=== PATIENT | male | born 1970 | race Caucasian/White ===

== ENCOUNTER 2016-07-03 17:20 | Inpatient (IN) | payer OTHER ==
[2016-07-03 17:28] VITALS: RESP 16
[2016-07-03] MEDS ORDERED: fentaNYL 100 MCG/2 ML INJ IVP ONE (19:56)
[2016-07-03] MEDS ORDERED: ONDANSETRON 4 MG/2 ML VIAL IVP ONE (19:56)
[2016-07-03] MEDS ORDERED: NS 1,000 ML IV ONE ×2 (19:57→21:46)
[2016-07-03 20:07] LABS: ANION GAP 11 mEq/L (8-16); CALCIUM 8.3 mg/dL (8.5-10.4); CARBON DIOXIDE 27 mEq/l (22-31); CHLORIDE 102 mEq/L (97-110); CREATININE 0.7 mg/dL (0.7-1.3); GLOMERULAR FILTRATION RATE > 60; GLUCOSE 70 mg/dL (70-100); POTASSIUM 3.3 mEq/L (3.5-5.2); SODIUM 140 mEq/L (134-144)
--- NOTE | 2016-07-03 20:08 | EDPHY ---
H & P Stated Complaint: suprapubic pain x 3 weeks--pt concerned for "uti and diverticulitus" HPI/ROS: CHIEF COMPLAINT: Abdominal pain, flank pain HISTORY OF PRESENT ILLNESS: 2 weeks of generalized abdominal pain he feels is related to diverticulitis. Two days of right-sided flank pain. The abdominal pain is minimal at this time. Was moderate to severe 1st and has improved. Some constipation diarrhea. No fevers or chills. Some dysuria. No urethral discharge. No history of renal stones. Nausea but no vomiting. He has had several bouts of diverticulitis in the past without surgical intervention. No other associated complaints or modifying factors. REVIEW OF SYSTEMS: Ten systems reviewed and are negative unless otherwise noted in the HPI EXAMINATION: General Appearance: Alert, no distress Head: normocephalic, atraumatic Eyes: Pupils equal and round, no conjunctival pallor or injection ENT, Mouth: Mucous membranes moist . No lesions. Airway patent. Neck: Normal inspection, supple, non-tender Respiratory: Lungs are clear to auscultation . No wheezing rhonchi or crackles Cardiovascular: Regular rate and rhythm. Pulses intact distally Gastrointestinal: obese abdomen. Abdomen is soft and nontender In all quadrants. Mild CVA tenderness.. No tympany. No rigidity. Non-acute abdomen. Neurological: A&O, nonfocal, Strength is 5/5 in all limbs. Skin: Warm and dry, no rash Extremities: Nontender, no pedal edema Psychiatric: Mood and affect normal DIFFERENTIAL DIAGNOSES: Including but not limited to Renal colic, renal stone, ureteral stone, cystitis, diverticulitis, colitis, enteritis MDM: 8:08 p.m. abdominal and flank pain patient with diverticulitis in the past. He has had no perforations, abscesses or colectomies. His abdominal pain is minimal at this time as he is more concerned about the right flank pain. he remains hemodynamically stable in no acute distress. 9:00 p.m. notified by Radiology that there is evidence of acute mid sigmoid diverticulitis is transmural. No perforation or abscess. There is also adjacent cystic transmural inflammatory response. No visualized stones or hydronephrosis. I have informed the patient of these findings. He is still in pain, but his abdomen remained soft without peritonitis. Did recommend admission to the hospital and he has agreed to be admitted. I discussed the case with Dr. Cooper at 9:15pm, and he will admit the patient. He prefers Levaquin and Flagyl at this time. Patient will be admitted to a medical- surgical bed in stable condition. SUPERVISION: This patient was independently evaluated without the aide of supervising physician.The case discussed with Dr. Odom. Source: Patient Exam Limitations: No limitations - Personal History Current Tetanus/Diphtheria Vaccine: Unsure Current Tetanus Diphtheria and Acellular Pertussis (TDAP): Unsure - Medical/Surgical History Hx Asthma: No Hx Chronic Respiratory Disease: No Hx Diabetes: Yes Hx Cardiac Disease: No Hx Renal Disease: No Hx Cirrhosis: No Hx Alcoholism: No Hx HIV/AIDS: No Hx Splenectomy or Spleen Trauma: No Other PMH: ins diabetic. divertic - Social History Smoking Status: Never smoked Constitutional: Initial Vital Signs Temperature (C) 99.3 F 07/03/16 17:25 Heart Rate 98 07/03/16 17:25 Respiratory Rate 16 07/03/16 17:25 Blood Pressure 132/58 H 07/03/16 17:25 O2 Sat (%) 94 07/03/16 17:25 O2 Delivery Mode Room Air Allergies/Adverse Reactions: oxycodone [Oxycodone] Allergy (Severe, Verified 05/07/13 19:55) Pain hydromorphone HCl [From Dilaudid] Allergy (Verified 05/04/13 17:24) Home Medications: Medication Instructions Recorded Insulin Glargine [Lantus 100 60 unit SQ HS 05/04/13 UNITS/ML (RX)] Insulin Lispro [Humalog] 10 - 12 unit SQ TIDMEAL 05/04/13 Lisinopril 5 mg PO DAILY 05/04/13 Medical Decision Making - Data Points Laboratory Results: Laboratory Results 07/03/16 19:30 07/03/16 19:30 07/03/16 07/03/16 19:30 19:20 WBC 19.93 H 10^3/uL (3.80-9.50) RBC 4.33 L 10^6/uL (4.40-6.38) Hgb 14.1 g/dL (13.7-17.5) Hct 39.7 L % (40.0-51.0) MCV 91.7 fL (81.5-99.8) MCH 32.6 pg (27.9-34.1) MCHC 35.5 g/dL (32.4-36.7) RDW 12.6 % (11.5-15.2) Plt Count 355 10^3/uL (150-400) MPV 9.2 fL (8.7-11.7) Neut % (Auto) 76.8 H % (39.3-74.2) Lymph % (Auto) 16.5 % (15.0-45.0) [place] % (Auto) 5.5 % (4.5-13.0) Eos % (Auto) 0.3 L % (0.6-7.6) Baso % (Auto) 0.3 % (0.3-1.7) Nucleat RBC Rel Count 0.0 % (0.0-0.2) Absolute Neuts (auto) 15.33 H 10^3/uL (1.70-6.50) Absolute Lymphs (auto) 3.28 H 10^3/uL (1.00-3.00) Absolute Monos (auto) 1.10 H 10^3/uL (0.30-0.80) Absolute Eos (auto) 0.05 10^3/uL (0.03-0.40) Absolute Basos (auto) 0.06 10^3/uL (0.02-0.10) Absolute Nucleated RBC 0.00 10^3/uL (0-0.01) Immature Gran % 0.6 % (0.0-1.1) Immature Gran # 0.11 H 10^3/uL (0.00-0.10) Sodium 140 mEq/L (134-144) Potassium 3.3 L mEq/L (3.5-5.2) Chloride 102 mEq/L (97-110) Carbon Dioxide 27 mEq/l (22-31) Anion Gap 11 mEq/L (8-16) BUN 7 mg/dL (7-23) Creatinine 0.7 mg/dL (0.7-1.3) Estimated GFR > 60 Glucose 70 mg/dL (70-100) Calcium 8.3 L mg/dL (8.5-10.4) Lipase 20.0 L IU/L (23-300) Urine Color YELLOW Urine Appearance MODERATELY TURBID Urine pH 6.0 (5.0-7.5) Ur Specific [place] 1.010 (1.002-1.030) Urine Protein 1+ H (NEGATIVE) Urine Ketones NEGATIVE (NEGATIVE) Urine Blood 2+ H (NEGATIVE) Urine Nitrate POSITIVE H (NEGATIVE) Urine Bilirubin NEGATIVE (NEGATIVE) Urine Urobilinogen 2.0 H EU (0.2-1.0) Ur Leukocyte Esterase 3+ H (NEGATIVE) Urine RBC 10-15 H /hpf (0-3) Urine WBC 50-182 H /hpf (0-3) Ur Epithelial Cells TRACE /lpf (NONE-1+) Urine Bacteria 3+ H /hpf (NONE SEEN) Urine Mucus TRACE /lpf (NONE-1+) Urine Glucose NEGATIVE (NEGATIVE) Medications Given: Discontinued Medications Fentanyl (Sublimaze) 75 mcg IVP EDNOW ONE Stop: 07/03/16 19:57 Last Admin: 07/03/16 20:03 Dose: 75 mcg Sodium Chloride (Ns) 1,000 mls @ 0 mls/hr IV ONCE ONE PRN Reason: Wide Open Stop: 07/03/16 19:58 Last Admin: 07/03/16 20:00 Dose: 1,000 mls Ondansetron HCl (Zofran) 4 mg IVP EDNOW ONE Stop: 07/03/16 19:57 Last Admin: 07/03/16 20:04 Dose: 4 mg Departure - Departure Disposition: [facility] Inpatient Acute Clinical Impression: Renal colic on right side, Acute diverticulitis of intestine, Cystitis Abdominal pain Qualifiers: Abdominal location: generalized Qualifier Code: (R10.84) Generalized abdominal pain Urinary tract infection Qualifiers: Urinary tract infection type: acute cystitis Hematuria presence: without hematuria Qualifier Code: (N30.00) Acute cystitis without hematuria Condition: Good Referrals: Mackenzie Wade PA [Primary Care Provider] - As per Instructions
[2016-07-03 20:11] LABS: % IMMATURE GRANULYOCYTES 0.6 % (0.0-1.1); ABSOLUTE IMMATURE GRANULOCYTES 0.11 10^3/uL (0.00-0.10); ADD DIFF? NO; ADD MORPH? NO; ADD SCAN? NO; ATYPICAL LYMPHOCYTE FLAG 10 (0-99); FRAGMENT RBC FLAG 0 (0-99); HEMATOCRIT 39.7 % (40.0-51.0); HEMOGLOBIN 14.1 g/dL (13.7-17.5); LEFT SHIFT FLG 20 (0-99); LIPEMIA HEMOLYSIS FLAG 90 (0-99); MEAN CELL HEMOGLOBIN 32.6 pg (27.9-34.1); MEAN CELL HEMOGLOBIN CONCENTR. 35.5 g/dL (32.4-36.7); MEAN CELL VOLUME 91.7 fL (81.5-99.8); MEAN PLATELET VOLUME 9.2 fL (8.7-11.7); PLATELET CLUMPS FLAG 10 (0-99); PLATELET COUNT 355 10^3/uL (150-400); RED BLOOD CELL COUNT 4.33 10^6/uL (4.40-6.38); RED CELL DISTRIBUTION WIDTH 12.6 % (11.5-15.2)
[2016-07-03 20:25] LABS: COLOR YELLOW; LEUKOCYTE ESTERASE,URINE 3+ (NEGATIVE); NITRITE,URINE POSITIVE (NEGATIVE)
[2016-07-03 20:33] LABS: BACTERIA 3+ /hpf (NONE SEEN); MUCUS TRACE /lpf (NONE-1+); WBC,URINE 50-182 /hpf (0-3)
[2016-07-03] MEDS ORDERED: IOPAMIDOL (ISOVUE-300) 100 ML BTL IV ONE (20:34)
--- NOTE | 2016-07-03 21:11 | CT ---
CT Scan of the Abdomen and Pelvis (With Contrast) Clinical Indications: Generalized abdominal pain and lower pelvic pain. Technique: 99 mL of Isovue 300 were given intravenously by machine power injection. Multidetector he lical CT imaging was performed from the diaphragm to the symphysis pubis. Dose reduction techniques w ere utilized. Findings: CT abdomen: Lung bases are clear. Liver and spleen enhance normally. Adrenal glands appear normal. Ga llbladder is surgically absent. Kidneys enhance symmetrically without obstructive uropathy. CT pelvis: There is a focal segment of transmural wall thickening involving the sigmoid colon. There is associated retention of stool above this area. There is relatively abrupt transition to normal sig moid distal to the area of stricture. Pericolonic inflammatory stranding noted. This most likely repr esents a focal area of acute diverticulitis, although colonic mass is not excluded. Consider endoscop ic evaluation after treatment, as clinically appropriate. There is adjacent thickening of the left side of the dome of the urinary bladder which may be seconda ry to inflammatory changes. Impressions: 1. Focal area of transmural wall thickening involving the midsigmoid colon with adjacent inflammatory changes. While this may represent acute diverticulitis, consider endoscopic evaluation after treatme nt to exclude annular constricting mass. 2. Adjacent focus of transmural wall thickening of the left side of the dome of the urinary bladder, which may be secondary to adjacent inflammatory disease. Results called to Lacho Flores PA-C at the time of the dictation.
[2016-07-03] MEDS ORDERED: ONDANSETRON DISINTEGRATING 4 MG TAB PO PRN (22:34)
[2016-07-03] MEDS ORDERED: ACETAMINOPHEN 325 MG TAB PO PRN (22:34)
[2016-07-03] MEDS ORDERED: ONDANSETRON 4 MG/2 ML VIAL IVP PRN (22:34)
[2016-07-03] MEDS ORDERED: fentaNYL 100 MCG/2 ML INJ IVP PRN (22:58)
--- NOTE | 2016-07-04 00:20 | GHP ---
[f rep st] HISTORY AND PHYSICAL DATE OF ADMISSION: 07/03/2016 CHIEF COMPLAINT: Abdominal pain. HISTORY OF PRESENT ILLNESS: This is a 45-year-old male, with a history of diabetes and previous dive rticulitis, who presents with 3 weeks of progressing lower abdominal discomfort. The patient has had previous hospitalizations for diverticulitis, last of which was in 2012. Reports, since that time, has not had difficulty with his diverticular disease. Began developing lower abdominal pain approxim ately 3 weeks ago, which has been gradually worsening over the course of the last 3 weeks. The morni ng of presentation, the patient had marked discomfort, with associated intermittent nausea, and then dysuria and frequency, and therefore presented for evaluation. The patient reports some subjective f vijay and chills in the 48 hours prior to presenting. Again, some nausea, no vomiting. Had previous ly had loose stools occasionally with blood, but in the last 24, has not passed a stool. Denies any blood in his urine. Denies any chest pain. Has had mild shortness of breath with his nausea and abd ominal discomfort. Denies vision changes. Denies headache. Denies rashes, lower extremity edema, a rthralgias or myalgias. PAST MEDICAL HISTORY: For this patient: 1. Diabetes. 2. History of diverticulitis. 3. Obesity. 4. Hypertension. 5. Hyperlipidemia. 6. History of Klebsiella bacteremia related to potential diverticular infection. SOCIAL HISTORY: Negative for tobacco. Occasional alcohol. No illicit drugs or marijuana. FAMILY HISTORY: Positive for pancreatic cancer in his mother. Otherwise, no diabetes. ADVANCE DIRECTIVE: The patient is full cor/full tube. His would be his medical decision maker. REVIEW OF SYSTEMS: A 10-point review of systems is negative, with the exception of that reported in the HPI. PHYSICAL EXAMINATION: VITAL SIGNS: Blood pressure 106/51, heart rate 89, respiratory rate 16, 91% o n room air, 38.0. GENERAL: This is an obese middle-aged male lying flat in bed. HEENT: Notable fo r dry mucous membranes. Eye exam is negative for any icterus. CARDIAC: Patient is regular rate and rhythm. No murmurs, gallops, or rubs. PULMONARY: The patient has good respiratory effort, is alize r to auscultation bilaterally. GASTROINTESTINAL: Positive bowel sounds. ABDOMEN: Soft. Patient h as mild suprapubic tenderness. No rebound or guarding. MUSCULOSKELETAL: Negative for any lower ext remity edema. SKIN: Negative for any rashes. NEUROLOGIC: The patient is alert and oriented x3. P SYCHIATRIC: He is pleasant and cooperative on interview and examination. DATA: White count is 19.9, hematocrit 39.7, up from previous baselines, platelet count of 355. Pota ssium 3.3, creatinine 0.7. Hemoglobin A1c 9.4 in September of 2015. Urinalysis grossly abnormal, 50-182 white blood cells, positive leukocyte esterase, positive nitrites, positive blood. CT of the abdomen, which I personally reviewed and interpreted, shows midsigmoid colon inflammation, as well as adjacent transmural bladder thickening. ASSESSMENT AND PLAN: 1. This is a 45-year-old male presenting with acute diverticulitis. This is a known diagnosis for t his patient. He did have associated bacteremia on his last hospitalization, is presenting with sepsi s, based on laboratories, and fever. We will draw blood cultures. Fluid resuscitate. Empirically t reat with IV ertapenem. I have consulted Dr. Foreman from Gastroenterology, as we are seeing adjac ent bladder inflammation and thickening that may signify a fistular connection. Made the patient juan ar liquids, and will treat with as-needed IV pain medications. 2. Acute pyelonephritis. Patient has leukocytosis, urinary symptoms, abdominal pain. Again, based on the imaging, concern that there may be a fistular connection between the bowel and the bladder. Lesley Foreman will consult and assess, and decision making regarding additional diagnostics to rule a fistula out. Will treat with IV ertapenem, which should adequately cover both urinary and GI bugs. 3. Sepsis. The patient is presenting with a white count of 19,000 and a fever. Presumed source: G astrointestinal and urinary. Will treat with above antibiotics and fluid resuscitation. 4. Diabetes mellitus. We will continue his home medications when reconciled. Decrease his home gla rgine, as his oral intake will be diminished, and cover with sliding scale insulin. 5. Hypertension. Patient's blood pressures are normal at presentation. He is not on medications in the outpatient setting. We will simply follow. 6. Prophylaxis with Lovenox. 7. Diet. Clear liquids. 8. Disposition. I expect greater than 2 midnights. The patient is presenting with sepsis, and omid rointestinal and urinary sources. I have discussed the case with the RN. We will obtain blood cultures, with the patient's previous hi story of bacteremia, and treat with IV fentanyl, as he has had serious reactions to Dilaudid in the p ast. /[id number]/MODL
[2016-07-04 05:36] LABS: % IMMATURE GRANULYOCYTES 0.5 % (0.0-1.1); ABSOLUTE IMMATURE GRANULOCYTES 0.08 10^3/uL (0.00-0.10); ADD DIFF? NO; ADD MORPH? NO; ADD SCAN? NO; ATYPICAL LYMPHOCYTE FLAG 20 (0-99); FRAGMENT RBC FLAG 0 (0-99); HEMATOCRIT 33.6 % (40.0-51.0); HEMOGLOBIN 11.8 g/dL (13.7-17.5); LEFT SHIFT FLG 70 (0-99); LIPEMIA HEMOLYSIS FLAG 90 (0-99); MEAN CELL HEMOGLOBIN 32.2 pg (27.9-34.1); MEAN CELL HEMOGLOBIN CONCENTR. 35.1 g/dL (32.4-36.7); MEAN CELL VOLUME 91.6 fL (81.5-99.8); MEAN PLATELET VOLUME 9.3 fL (8.7-11.7); PLATELET CLUMPS FLAG 20 (0-99); PLATELET COUNT 255 10^3/uL (150-400); RED BLOOD CELL COUNT 3.67 10^6/uL (4.40-6.38); RED CELL DISTRIBUTION WIDTH 12.5 % (11.5-15.2)
[2016-07-04 05:51] LABS: ANION GAP 11 mEq/L (8-16); CALCIUM 7.3 mg/dL (8.5-10.4); CARBON DIOXIDE 23 mEq/l (22-31); CHLORIDE 107 mEq/L (97-110); CREATININE 0.6 mg/dL (0.7-1.3); GLOMERULAR FILTRATION RATE > 60; GLUCOSE 71 mg/dL (70-100); SODIUM 141 mEq/L (134-144)
[2016-07-04] MEDS ORDERED: PROTOCOL POTASSIUM 1 DOSE MISC PRN (07:28)
[2016-07-04] MEDS ORDERED: POTASSIUM CL 10 MEQ TAB PO ONE (07:43)
[2016-07-04] MEDS: ENOXAPARIN 40 MG/0.4 ML SYR SC SCH (07:46)
[2016-07-04] MEDS: ERTAPENEM 1 GM in NS 100 ML IV SCH (07:46)
[2016-07-04] MEDS ORDERED: D50W 25 GM/50 ML SYR IVP PRN (08:22)
--- NOTE | 2016-07-04 12:57 | GCON ---
[f rep st] CONSULTATION GASTROENTEROLOGY CONSULTATION DATE OF CONSULTATION: 07/04/2016 CHIEF COMPLAINT: Abdominal pain. HISTORY OF PRESENT ILLNESS: I am asked to see this patient in consultation by Dr. Cooper for the [facility] complaint of diverticulitis. He is a pleasant 45-year-old who has had a history of diverticuliti s, at least 2 prior flares. He states the first one was in 2009, the last one was probably 3 years a go. At the time they thought he may have had an enteric vesicular fistula, but states that it was "r uled out." It was recommended that he have a colonoscopy, but he never followed up. He did well unt tn about 3 weeks ago when he had onset of abdominal pain very consistent with his prior diverticuliti s and decided to try to manage it at home, but the pain worsened and he developed fevers, so he prese nted to the emergency room. CT scan showed significant inflammation in the sigmoid consistent with d iverticulitis with inflammation around the bladder, but no air in the bladder. The patient does stat e that he has had some constipation, recent diarrhea especially with antibiotics. He has noted inter mittent blood with the stools for the past 3 weeks, but no melenic stools. No family history of colo n cancer or colon polyps. ALLERGIES: The patient is allergic to Dilaudid. CURRENT MEDICATIONS: Home medications include insulin and Motrin. PAST MEDICAL HISTORY: Notable for diabetes, insulin dependent, history of diverticulitis, obesity, h ypertension, hyperlipidemia. SOCIAL HISTORY: Negative for tobacco. Drinks occasional alcohol. FAMILY HISTORY: Negative for colon cancer or colon polyps. REVIEW OF SYSTEM: A review of 10 systems including general, psych, HEENT, cardiovascular, pulmonary, renal, hematological, musculoskeletal, dermatologic, neurologic discussed and otherwise negative or noncontributory as noted above. PHYSICAL EXAM: VITAL SIGNS: He does have a temperature at 38.1, BP 126/70, pulse 89. HEENT: PERRL A. EOMI. Nose clear. Oropharynx is normal. NECK: Supple without lymphadenopathy. No thyromegaly . CARDIAC: Regular rate and rhythm. S1, S2 normal. No S3 or murmur detected. PMI normal location . CHEST: Clear to auscultation bilaterally. Normal chest excursion. ABDOMEN: Obese, soft. There are positive bowel sounds. No hepatosplenomegaly. No tenderness or rebound on abdominal exam. EXT REMITIES: Normal. NEUROLOGICAL: Nonfocal. LABORATORY DATA: Shows white count on admission at 19 with hematocrit of 39, platelets 255. Booster Pump Operator arias normal. CT scan of the abdomen shows focal area of transmural wall thickening involving the midsigmoid and ad jacent inflammatory changes. This may represent diverticulitis, but also need to consider an annular constricting mass. There is a focal thickening in the dome of the bladder adjacent to this area of inflammation. ASSESSMENT: 1. Abdominal pain. 2. Abnormal CT scan. 3. Elevated white count and fever. I think most consistent with diverticulitis in this patient with 2 prior issues with diverticulitis episodes. Patient also with abnormal urinalysis and urinary infection concerning for possibility of a fistula. I reviewed the CT scan with the radiologist and there is no air in the bladder or definit e sign of fistula, although this could be from adjacent inflammatory process of the sigmoid. RECOMMENDATIONS: Recommend antibiotic therapy for diverticulitis, as has been initiated. Will monit or patient's clinical response. At this point, would hold on imaging for possible fistula, but follo w clinically. If he does well, then we can send him home to complete a 2-week course of antibiotics. Once improved, we will plan for an outpatient colonoscopy at 8 weeks after therapy. However, if jimmy shin does not continue to improve, then may consider options to assess for fistula such as a cystogr am or potentially a CT scan with rectal contrast and thin cuts through the sigmoid area. Would be he sitant to do colonoscopy acutely in the presence of possible diverticulitis due to increased risk. Will follow with you. Thank for this consult. /[id number]/MODL
[2016-07-04] MEDS: NS 1,000 ML IV SCH ×2 (13:43→23:45)
--- NOTE | 2016-07-04 13:43 | HOSPPROG ---
Hospitalist Progress Note Assessment/Plan: 45-y/o M PMH T2DM, obesity, htn, dyslipidemia, previous h/o Klebsiella bacteremia, diverticulitis (first bout in 2009 and then 3 years ago) p/w 3 weeks of abd pain with progressively worsening discomfort. On day of admission had marked worsening of discomfort, intermittent nausea, dysuria/frequency, and subjective fevers. Has also had loose stools with blood but no melena. #. acute diverticulitis: CT scan shows inflammation of the sigmoid colon and around the bladder appreciate GI input started on IV invanz continue therapy as at present continue clear liquids will need colonoscopy in 8 weeks #. acute pyelonephritis: has elevated WBCs, urinary symptoms and abd pain Dr. Foreman has reviewed CT imaging with radiology and no air is seen in the bladder (making fistula less likely) could have cystogram versus barium once better from diverticulitis #. sepsis: as evidenced by F and elevated WBC continue IVF #. T2DM: insulin doses have been decreased as PO intake diminished currently #. htn: on no medications as outpatient BP stable #. hypokalemia: on repletion protocol #. DVT ppx: on Enox #. Dispo: ongoing inpt status as pt still febrile and on IV abx Subjective: Reports abdominal pain improved. Still febrile. No chills. Has had formed stools without hematochezia. Objective: Vital Signs Temp Pulse Resp BP Pulse Ox 100.6 F 89 16 126/70 H 91 L 07/04/16 11:48 07/04/16 11:48 07/04/16 11:48 07/04/16 11:48 07/04/16 11:48 Laboratory Results 07/04/16 04:35 07/04/16 04:35 07/03/16 07/04/16 07/05/16 05:59 05:59 05:59 Intake Total 1200 Balance 1200 - Physical Exam Constitutional: no apparent distress, appears nourished Eyes: PERRL Ears, Nose, Mouth, Throat: moist mucous membranes, hearing normal Cardiovascular: regular rate and rhythym, no murmur, rub, or gallop Respiratory: no respiratory distress, no rales or rhonchi Gastrointestinal: normoactive bowel sounds, soft, non-tender abdomen Skin: warm, normal color ICD10 Worksheet Patient Problems: Problems Problem Status Diagnosed Abdominal pain Acute Acute diverticulitis Acute Bacteremia due to Klebsiella pneumoniae Acute Cystitis Acute Fever Acute Renal colic on right side Acute UTI (urinary tract infection) Acute
[2016-07-04 18:58] LABS: POTASSIUM 3.2 mEq/L (3.5-5.2)
[2016-07-04] MEDS: INSULIN GLARGINE 100 UNITS/ML SYRINGE SC SCH (19:42)
[2016-07-05 04:57] LABS: ABSOLUTE IMMATURE GRANULOCYTES 0.13 10^3/uL (0.00-0.10); ADD DIFF? NO; ADD MORPH? NO; ADD SCAN? NO; ATYPICAL LYMPHOCYTE FLAG 10 (0-99); FRAGMENT RBC FLAG 20 (0-99); HEMATOCRIT 33.9 % (40.0-51.0); HEMOGLOBIN 12.1 g/dL (13.7-17.5); LEFT SHIFT FLG 10 (0-99); LIPEMIA HEMOLYSIS FLAG 90 (0-99); MEAN CELL HEMOGLOBIN 32.4 pg (27.9-34.1); MEAN CELL HEMOGLOBIN CONCENTR. 35.7 g/dL (32.4-36.7); MEAN CELL VOLUME 90.6 fL (81.5-99.8); MEAN PLATELET VOLUME 8.8 fL (8.7-11.7); PLATELET CLUMPS FLAG 10 (0-99); PLATELET COUNT 295 10^3/uL (150-400); RED BLOOD CELL COUNT 3.74 10^6/uL (4.40-6.38); RED CELL DISTRIBUTION WIDTH 12.1 % (11.5-15.2)
[2016-07-05 05:35] LABS: ANION GAP 11 mEq/L (8-16); CALCIUM 7.5 mg/dL (8.5-10.4); CARBON DIOXIDE 23 mEq/l (22-31); CHLORIDE 108 mEq/L (97-110); CREATININE 0.6 mg/dL (0.7-1.3); GLOMERULAR FILTRATION RATE > 60; GLUCOSE 80 mg/dL (70-100); POTASSIUM 3.2 mEq/L (3.5-5.2); SODIUM 142 mEq/L (134-144)
[2016-07-05] MEDS: ERTAPENEM 1 GM in NS 100 ML IV SCH (09:00)
[2016-07-05] MEDS: ENOXAPARIN 40 MG/0.4 ML SYR SC SCH (09:02)
[2016-07-05] MEDS: NS 1,000 ML IV SCH ×2 (09:37→21:21)
--- NOTE | 2016-07-05 10:17 | SOAPPROG ---
SOAP Progress Note Assessment/Plan: Assessment: Abd pain better Diverticulitis with significant inflammation involving adjacent bladder. Still with fever last night Plan:Continue IV antibiotics today Change to PO likely flagyl/cipro once afebrile for 14 days Colon as outpatient. If patient does not improve on antibiotic consider cystogram to r/o fistula and high risk flex sig 07/05/16 10:13 Subjective: CC abd pain Pt fells better but still with urinary sxm Objective: Vital Signs Temp Pulse Resp BP Pulse Ox 36.8 C 74 16 134/74 H 94 07/05/16 07:26 07/05/16 07:26 07/05/16 07:26 07/05/16 07:26 07/05/16 07:26 Laboratory Results 07/05/16 04:31 07/05/16 04:31 07/04/16 07/05/16 07/06/16 05:59 05:59 05:59 Intake Total 1200 2915 Balance 1200 2915 Physical Exam - Physical Exam General Appearance: no apparent distress Respiratory: lungs clear, normal breath sounds Cardiac/Chest: regular rate, rhythm, No diastolic murmur Abdomen: non-tender, soft ICD10 Worksheet Patient Problems: Problems Problem Status Diagnosed Abdominal pain Acute Acute diverticulitis Acute Bacteremia due to Klebsiella pneumoniae Acute Cystitis Acute Fever Acute Renal colic on right side Acute UTI (urinary tract infection) Acute
[2016-07-05] MEDS ORDERED: POTASSIUM CL 10 MEQ TAB PO ONE ×2 (11:50→20:26)
[2016-07-05] MEDS ORDERED: POTASSIUM CL 10 MEQ TAB ONE (12:17)
--- NOTE | 2016-07-05 15:22 | HOSPPROG ---
Hospitalist Progress Note Assessment/Plan: 45-y/o M PMH T2DM, obesity, htn, dyslipidemia, previous h/o Klebsiella bacteremia, diverticulitis (first bout in 2009 and then 3 years ago) p/w 3 weeks of abd pain with progressively worsening discomfort. On day of admission had marked worsening of discomfort, intermittent nausea, dysuria/frequency, and subjective fevers. Has also had loose stools with blood but no melena. This is my 1st encounter with the patient, chart reviewed. Patient discussed with Dr. Foreman of Gastroenterology. #. acute diverticulitis: CT scan shows inflammation of the sigmoid colon and around the bladder appreciate GI input Continue IV invanz continue therapy as is continue clear liquids, advance diet will need colonoscopy in 8 weeks Once patient afebrile will transition to oral antibiotics for total of 14 days #. acute pyelonephritis: has elevated WBCs, urinary symptoms and abd pain Dr. Foreman has reviewed CT imaging with radiology and no air is seen in the bladder (making fistula less likely) could have cystogram versus barium once better from diverticulitis #. sepsis: as evidenced by F and elevated WBC continue IVF #. T2DM: insulin doses have been decreased as PO intake diminished currently #. htn: on no medications as outpatient BP stable #. hypokalemia: on repletion protocol #. DVT ppx: on Enox #. Dispo: ongoing inpt status as pt still febrile and on IV abx Continue close monitoring Subjective: Up in bed. No specific issues. Still having some difficulty urinating. No other complaints no abdominal pain. Objective: Vital Signs Temp Pulse Resp BP Pulse Ox 37.2 C 75 16 141/73 H 93 07/05/16 12:00 07/05/16 12:00 07/05/16 12:00 07/05/16 12:00 07/05/16 12:00 Laboratory Results 07/05/16 04:31 07/05/16 04:31 07/04/16 07/05/16 07/06/16 05:59 05:59 05:59 Intake Total 1200 2915 Balance 1200 2915 - Physical Exam Constitutional: no apparent distress, appears nourished, obese Eyes: PERRL, anicteric sclera, EOMI Ears, Nose, Mouth, Throat: moist mucous membranes, hearing normal, ears appear normal Cardiovascular: regular rate and rhythym, No JVD, No edema Respiratory: no respiratory distress, no rales or rhonchi, reduced air movement Gastrointestinal: normoactive bowel sounds, No tenderness, No ascites Skin: warm, normal color, No erythema Musculoskeletal: normal joint ROM, no joint effusions, generalized weakness Neurologic: AAOx3 Psychiatric: interacting appropriately, not anxious, not encephalopathic ICD10 Worksheet Patient Problems: Problems Problem Status Diagnosed Abdominal pain Acute Acute diverticulitis Acute Bacteremia due to Klebsiella pneumoniae Acute Cystitis Acute Fever Acute Renal colic on right side Acute UTI (urinary tract infection) Acute
[2016-07-05 20:24] LABS: POTASSIUM 3.6 mEq/L (3.5-5.2)
[2016-07-05] MEDS: INSULIN GLARGINE 100 UNITS/ML SYRINGE SC SCH (21:16)
[2016-07-06 06:02] LABS: POTASSIUM 3.3 mEq/L (3.5-5.2)
[2016-07-06 07:48] VITALS: BP 151/81; PULSE 66; TEMP 98.3; O2SAT 95
[2016-07-06] MEDS ORDERED: POTASSIUM CL 10 MEQ TAB ONE (09:24)
[2016-07-06] MEDS ORDERED: POTASSIUM CL 20 MEQ TAB ONE (09:25)
[2016-07-06] MEDS: ERTAPENEM 1 GM in NS 100 ML IV SCH (09:26)
[2016-07-06] MEDS: ENOXAPARIN 40 MG/0.4 ML SYR SC SCH (09:28)
[2016-07-06] MEDS ORDERED: POTASSIUM CL 10 MEQ TAB PO ONE (10:51)
--- NOTE | 2016-07-07 01:26 | GDS ---
[f rep st] DISCHARGE SUMMARY DISCHARGE DIAGNOSES: 1. Diverticulitis. 2. Urinary tract infection. 3. Sepsis. 4. Type 2 diabetes. 5. Hypertension. 6. Hypokalemia. CONSULTATIONS: Gastroenterology. STUDIES AND PROCEDURES DONE: CT of the abdomen. PHYSICAL EXAM: GENERAL: The patient is alert. VITAL SIGNS: Afebrile at 36.8, pulse is 66, respira tory rate 16, blood pressure is 151/81, he is saturating 95% on room air. I have seen and evaluated the patient on the day of discharge. HOSPITAL COURSE: The patient is a 45-year-old male who has a history of diverticulitis, presented to the emergency room with complaints of worsening abdominal pain. He was evaluated and diagnosed with : 1. Acute diverticulitis. During this hospitalization, he was treated with IV Invanz. CT scan of e abdomen notes inflammation in the sigmoid colon and around the bladder. He is tolerating a regular diet. He has been transitioned to oral antibiotics, and will follow up with a colonoscopy in 8 week s. I reviewed the case with Dr. Foreman who was in agreement with this plan. 2. E coli urinary tract infection. Again, the patient has been treated with appropriate antibiotic therapy and requires no further intervention. 3. Sepsis. This has resolved. 4. Diabetes mellitus type 2. His insulin has been continued, and he will continue his blood sugar r egimen in the outpatient setting. 5. Hypertension. This is well-controlled. 6. Hypokalemia. This has resolved with replacement. DISPOSITION: The patient will be discharged home independently. Followup will be with his primary c are physician, RIA Roach, as well as a followup colonoscopy in 8 weeks with [facility]. DISCHARGE MEDICATIONS: The patient has been provided a prescription for Flagyl, as well as ciproflox acin to be consumed for a total of 14 days. I spent greater than 35 minutes in the care, coordination, and management of this patient's dispositi on. /[id number]/MODL
== END 2016-07-06 10:36 | disposition home or self-care (01) | DRG 872 ==
LOC: F3E 22:06
PROVIDERS: ADMIT Student in an Organized Health Care Education/Training Program; ATTEND Hospitalist
DX: A41.51 Sepsis due to Escherichia coli [E. coli] (principal); N39.0 Urinary tract infection, site not specified; K57.32 Diverticulitis of large intestine without perforation or abscess without bleeding; E11.9 Type 2 diabetes mellitus without complications; I10 Essential (primary) hypertension; E87.6 Hypokalemia; E78.5 Hyperlipidemia, unspecified
CPT/HCPCS: 96365; J1335; J1650; J1815; J1956; J2405; J3010; Q9967

== ENCOUNTER 2017-05-24 06:48 | Emergency (ER) | payer OTHER ==
[2017-05-24 06:57] VITALS: TEMP 98.6
[2017-05-24] MEDS ORDERED: NS 1,000 ML IV ONE (07:04)
--- NOTE | 2017-05-24 07:05 | EDPHY ---
HPI/HX/ROS/PE/MDM Narrative: CHIEF COMPLAINT: Dehydration, muscle cramps HISTORY OF PRESENT ILLNESS: This patient is a 46 y/o male with history of diabetes and hypertension complaining of dehydration and body aches ongoing for the last week. Eight days ago, 05/16/17, he developed chills and shaking. He is not sure whether he was febrile at that time. He subsequently developed body aches, productive cough, and headache. The chills stopped last week, but his other symptoms continue. He endorses nausea and minor abdominal pain, no vomiting or diarrhea. His abdominal discomfort has caused lack of appetite and he has not been hydrating much and endorses reduced bowel movements. Today, decided to be evaluated due to ongoing symptoms. He endorses lightheadedness and dizziness, no syncope. He has history of DKA, but these symptoms do not feel similar. He has not checked his BGL. He was recently prescribed Losartan-HCTZ for lower extremity edema, but discontinued this and takes only Losartan. He did receive a flu vaccine this year. No known ill contacts. He denies any increased or unusual exertion. No fever, chest pain, shortness of breath, palpitations, vomiting, diarrhea, urinary complaints. REVIEW OF SYSTEMS: Aside from elements discussed in the HPI, a comprehensive 10-point review of systems was reviewed and is negative. PAST MEDICAL HISTORY: 1. Diabetes (Insulin, Metformin) 2. Hypertension (Losartan) 3. Hyperlipidemia 4. History of recurrent diverticulitis 5, History of DKA 6. Cholecystectomy Past medical records reviewed including admission 07/03/16 for diverticulitis and pyelonephritis. SOCIAL HISTORY: Nonsmoker. Endorses alcohol use. Daughter at bedside. PCP Dr. Haines. VITAL SIGNS: Reviewed by me GENERAL: Overweight, resting comfortably in no respiratory distress. HEENT: Atraumatic. Eyes: No icterus, no injection. Mouth: moist mucous membranes. No erythema or lesions. Neck: supple with no adenopathy. LUNGS: Clear to auscultation bilaterally, no wheezes, rhonchi or rales. CARDIAC: Regular rate and rhythm, no rubs, murmurs or gallops. ABDOMEN: Soft, obese, nontender, nondistended BACK: No CVA tenderness. EXTREMITIES: No trauma. Trace edema. Range of motion is normal throughout. NEURO: Alert and oriented, grossly nonfocal. SKIN: Cool and dry, no rash. PSYCHIATRIC: Normal mentation, flat affect, no agitation. Portions of this note were transcribed by a medical cash poster. I personally performed a history, physical exam, medical decision making, and confirmed accuracy of information the transcribed note. ED Course: 46 y/o male presents with one week history of body aches, productive cough, headache, and nausea. Skin is cool, no diaphoresis. Exam otherwise unremarkable. IV established. Plan for labs including CBC, chemistries, lipase, flu swab. Administered 1L IV NS for symptom relief. Offered Zofran for nausea control, but the patient declines, denies current nausea. 08:00 Patient is hyperglycemic at 232. Bicarbonate 18. Plan to administer 5 units IV insulin. Labs otherwise unremarkable. Influenza swab negative. 09:22 Reassessed patient. Discussed laboratory results. He is currently feeling better. Offered take-home Zofran, but the patient declines. Plan to discharge home in good condition. Follow up and return precautions discussed. He is comfortable with this plan. MDM: Differential diagnoses for the patient's symptom complex was considered including but not limited to dehydration, viral syndrome, hyperglycemia, DKA, influenza.. - Data Points Laboratory Results: Laboratory Results 05/24/17 07:25 05/24/17 07:25 05/24/17 05/24/17 05/24/17 07:30 07:25 07:25 WBC 10.96 10^3/uL H 10^3/uL (3.80-9.50) RBC 3.97 10^6/uL L 10^6/uL (4.40-6.38) Hgb 13.2 g/dL L g/dL (13.7-17.5) Hct 35.9 % L % (40.0-51.0) MCV 90.4 fL fL (81.5-99.8) MCH 33.2 pg pg (27.9-34.1) MCHC 36.8 g/dL H g/dL (32.4-36.7) RDW 11.9 % % (11.5-15.2) Plt Count 252 10^3/uL 10^3/uL (150-400) MPV 9.4 fL fL (8.7-11.7) Neut % (Auto) 81.1 % H % (39.3-74.2) Lymph % (Auto) 10.2 % L % (15.0-45.0) [place] % (Auto) 7.5 % % (4.5-13.0) Eos % (Auto) 0.3 % L % (0.6-7.6) Baso % (Auto) 0.4 % % (0.3-1.7) Nucleat RBC Rel Count 0.0 % % (0.0-0.2) Absolute Neuts (auto) 8.89 10^3/uL H 10^3/uL (1.70-6.50) Absolute Lymphs (auto) 1.12 10^3/uL 10^3/uL (1.00-3.00) Absolute Monos (auto) 0.82 10^3/uL H 10^3/uL (0.30-0.80) Absolute Eos (auto) 0.03 10^3/uL 10^3/uL (0.03-0.40) Absolute Basos (auto) 0.04 10^3/uL 10^3/uL (0.02-0.10) Absolute Nucleated RBC 0.00 10^3/uL 10^3/uL (0-0.01) Immature Gran % 0.5 % % (0.0-1.1) Immature Gran # 0.06 10^3/uL 10^3/uL (0.00-0.10) Sodium 133 mEq/L L mEq/L (134-144) Potassium 3.5 mEq/L mEq/L (3.5-5.2) Chloride 99 mEq/L mEq/L (97-110) Carbon Dioxide 18 mEq/l L mEq/l (22-31) Anion Gap 16 mEq/L mEq/L (8-16) BUN 10 mg/dL mg/dL (7-23) Creatinine 0.8 mg/dL mg/dL (0.7-1.3) Estimated GFR > 60 Glucose 232 mg/dL H mg/dL (70-100) Calcium 7.9 mg/dL L mg/dL (8.5-10.4) Creatine Kinase 142 IU/L IU/L (0-224) Lipase 87 IU/L IU/L (23-300) Nasal Influenza A PCR NEGATIVE FOR FLU A (NEGATIVE) Nasal Influenza B PCR NEGATIVE FOR FLU B (NEGATIVE) Medications Given: Discontinued Medications Sodium Chloride (Ns) 1,000 mls @ 0 mls/hr IV ONCE ONE; Wide Open PRN Reason: Protocol Stop: 05/24/17 07:05 Last Admin: 05/24/17 07:21 Dose: 1,000 mls Insulin Human Regular (Humulin R) 5 unit IVP EDNOW ONE Stop: 05/24/17 08:02 Last Admin: 05/24/17 08:21 Dose: 5 units General Initial Vital Signs: Initial Vital Signs Temperature (C) 37 C 05/24/17 06:53 Heart Rate 97 05/24/17 06:53 Respiratory Rate 17 05/24/17 06:53 Blood Pressure 136/76 H 05/24/17 06:53 O2 Sat (%) 95 05/24/17 06:53 O2 Delivery Mode Room Air Allergies/Adverse Reactions: oxycodone [Oxycodone] Allergy (Severe, Verified 05/07/13 19:55) Pain hydromorphone HCl [From Dilaudid] Allergy (Verified 05/04/13 17:24) Home Medications: Medication Instructions Recorded Ibuprofen [Motrin (*)] 1,200 mg PO BID PRN 07/03/16 Insulin Glargine [Lantus 100 70 units SC HS 07/03/16 UNITS/ML (*)] Departure - Departure Disposition: Home, Routine, Self-Care Clinical Impression: Hyperglycemia, Malaise, Nausea Condition: Good Instructions: Acute Nausea and Vomiting (ED), Diabetic Hyperglycemia (ED) Additional Instructions: 1. Follow up with Dr. Haines this week as we discussed. 2. Return to the emergency department if you develop fever, chest pain, shortness of breath, uncontrollable vomiting, or other worsening of condition. Referrals: Giuliana Haines MD [Primary Care Provider] - As per Instructions Report Scribed for: Sherry Álvarez Report Scribed by: Becca Boland Date of Report: 05/24/17 Time of Report: 07:04
[2017-05-24 07:41] LABS: PLATELET COUNT 252 10^3/uL (150-400)
[2017-05-24 07:56] LABS: CREATINE KINASE 142 IU/L (0-224)
[2017-05-24] MEDS ORDERED: INSULIN REGULAR HUMAN 100 UNIT/ML IVP ONE (08:01)
[2017-05-24 09:35] VITALS: BP 127/77; PULSE 86; RESP 18; O2SAT 94
== END 2017-05-24 09:34 | disposition home or self-care (01) ==
DX: E11.65 Type 2 diabetes mellitus with hyperglycemia (principal); R11.0 Nausea; R53.81 Other malaise; I10 Essential (primary) hypertension; Z79.4 Long term (current) use of insulin
CPT/HCPCS: 96374; J1815

== ENCOUNTER → 2018-02-17 | Outpatient (CLI) | payer OTHER | LOC: FIMAGING 17:05 | PROVIDERS: ATTEND Internal Medicine | DX: R06.00 Dyspnea, unspecified (principal); R10.9 Unspecified abdominal pain ==

== ENCOUNTER 2018-02-18 11:09 | Inpatient (IN) | payer OTHER ==
--- NOTE | 2018-02-18 11:35 | EDPHY ---
H & P Stated Complaint: sent in for +BC Time Seen by Provider: 02/18/18 11:16 HPI/ROS: Chief Complaint: Fevers, chills, malaise, positive blood cultures HPI: 47-year-old male presenting with fevers chills and malaise for the last 3 days. Patient was seen by his primary care physician, Dr. Haines, yesterday. Blood cultures grew out gram-negative rods. Patient has a history of diverticulitis and had a similar episode several years ago. He has been having episodes of fevers and chills every 1 to 3 weeks for the last year. He has not followed up with primary care physician till now. Some nausea vomiting. Occasional diarrhea and constipation. Some occasional urinary urgency and frequency. Temperature was 103 last night became down with ibuprofen. He has called by his primary care physician this morning to present for further evaluation. He has a history of type 2 diabetes. He also has a remote history of cholecystectomy. ROS: 10 systems were reviewed and were negative except those elements noted in the HPI. PMH: Type 2 diabetes, cholecystectomy, diverticulitis Social History: No smoking, no alcohol, no recreational drug use Family History: non-contributory Physical Exam: Gen: Awake, Alert, No Distress HEENT: Nose: no rhinorrhea Eyes: PERRLA, EOMI Mouth: Moist mucosa Neck: Supple, no JVD Chest: nontender, lungs clear to auscultation Heart: S1, S2 normal, no murmur Abd: Soft, non-tender, no guarding Back: no CVA tenderness, no midline tenderness Ext: no edema, non-tender Skin: no rash Neuro: CN II-XII intact, Sensation grossly intact, Strength 5/5 in bilateral upper and lower extremities - Medical/Surgical History Hx Asthma: No Hx Chronic Respiratory Disease: No Hx Diabetes: Yes Hx Cardiac Disease: Yes Hx Renal Disease: No Hx Cirrhosis: No Hx Alcoholism: No Hx HIV/AIDS: No Hx Splenectomy or Spleen Trauma: No Other PMH: diabetic. diverticulitis. HTN - Social History Smoking Status: Never smoked Constitutional: Initial Vital Signs Temperature (C) 36.8 C 02/18/18 11:13 Heart Rate 92 02/18/18 11:13 Respiratory Rate 18 02/18/18 11:13 Blood Pressure 138/99 H 02/18/18 11:13 O2 Sat (%) 97 02/18/18 11:13 O2 Delivery Mode Room Air Allergies/Adverse Reactions: hydromorphone HCl [From Dilaudid] Allergy (Verified 02/18/18 11:11) Home Medications: Medication Instructions Recorded Benicar 02/18/18 Humalog 02/18/18 Levemir 02/18/18 Metformin HCl 02/18/18 glipiZIDE 02/18/18 Medical Decision Making ED Course/Re-evaluation: Laboratory evaluations from yesterday noted. Urinalysis noted. Patient is a soft benign abdomen. Will obtain CT scan to evaluate for source. CT scan results noted. Symptoms consistent with a right focal pyelonephritis. No evidence of perinephric abscess. I have ordered ceftriaxone. Will discussed with hospitalist for admission. Departure - Departure Disposition: [facility] Inpatient Acute Clinical Impression: Bacteremia, Pyelonephritis Condition: Fair Referrals: Giuliana Haines MD [Primary Care Provider] - As per Instructions
[2018-02-18] MEDS ORDERED: IOPAMIDOL (ISOVUE-300) 100 ML BTL ONE (12:11)
[2018-02-18] MEDS ORDERED: ONDANSETRON DISINTEGRATING 4 MG TAB PO PRN (15:09)
[2018-02-18] MEDS ORDERED: ONDANSETRON 4 MG/2 ML VIAL IVP PRN (15:09)
[2018-02-18] MEDS ORDERED: D50W 25 GM/50 ML SYR IVP PRN (15:18)
--- NOTE | 2018-02-18 15:54 | GHP ---
DATE OF ADMISSION: 02/18/2018 CHIEF COMPLAINT: Night sweats, dysuria, positive blood culture. HPI: Mr. Meyers is a 47-year-old with a history significant for diabetes. He comes in with 3 days o f myalgias, low-grade fevers, night sweats, and some dysuria. He says his symptoms started on primarily with muscle aches associated with some mild nausea, cough, low-grade fevers and night s weats. He has noticed increasing urinary frequency as well as difficulty completely emptying his saqib dder. He did not have significant dysuria. He said he has had intermittent episodes like this over the last year. Often times the symptoms would last 3-4 days, followed by a few weeks of feeling good . He went to the clinic yesterday, had blood cultures drawn as well as routine blood work and this m jennifer was called to go to the ER because of a positive blood culture. He denies any chest pain. His cough is dry. He has no shortness of breath. He does have some very mild abdominal pain, nausea, but no emesis. Bowel movements are normal. Increased urinary frequency associated with minimal dysuria. No other joint pains, but diffuse myalgias and muscle aches. REVIEW OF SYSTEMS: A 10-point review of systems was done, is negative except as stated in the HPI. PAST MEDICAL HISTORY: 1. Type 2 diabetes, poorly controlled. 2. Dyslipidemia. 3. Hypertension. 4. Remote history of bacteremia associated with diverticulosis and translocation. PAST SURGICAL HISTORY: Cholecystectomy. FAMILY HISTORY: Significant for diabetes. SOCIAL HISTORY: He is . He works in a factory. He drinks occasionally but quit smoking. Co ntinues to chew tobacco daily. MEDICATIONS: Include insulin, both Levemir and lispro, glyburide 5 mg daily, metformin 1000 twice da jessy, Benicar 20 mg daily. ALLERGIES: Dilaudid. PHYSICAL EXAMINATION: VITAL SIGNS: He is afebrile. Heart rate 75, blood pressure 154/77, respirati ons 16. He is 97% on room air. GENERAL: He is an obese man in no acute distress. He is alert and or iented. Speech is clear and fluent. HEENT: He has a large sebaceous cyst on top of his head. Otherw ise atraumatic. Pupils round and reactive. Extraocular movements intact. Mucous membranes moist. NECK: Supple. No adenopathy. Good range of motion. HEART: Regular rate and rhythm. No murmur, g allop, or rub. LUNGS: Clear to auscultation. No wheeze, rhonchi, or rales. ABDOMEN: Obese. He d oes have some tenderness in the right upper quadrant to deep palpation. The rest of his abdomen is f airly benign. No obvious guarding or rebound. Normal bowel sounds. EXTREMITIES: No clubbing, cyan osis, or edema. BACK: Mild flank tenderness, right greater than left. MUSCULOSKELETAL: No joint eff usions or deformities. NEUROLOGIC: He is alert and oriented. Speech is fluent. He moves all 4 extr emities equally. SKIN: Intact, no rash. LABORATORY DATA: CBC shows a white count of 11.7, hemoglobin 12.3 with a platelet count of 209. Xuan camila shows normal electrolytes and renal function. Glucose slightly elevated at 146. Urinalysis h as positive leukocytes and red cells. ASSESSMENT AND PLAN: A 47-year-old presents with intermittent myalgias, low-grade fevers and night s weats. Most recent episode starting 3 days ago, he was found to be bacteremic with a gram-negative r od and evidence of a urinary tract infection and likely pyelonephritis on CT scan. 1. Pyelonephritis, complicated by bacteremia. No evidence of septic shock. Plan will be to admit h im to the hospital. Start him on ceftriaxone. Monitor cultures. Repeat blood cultures in the [facility] to ensure clearance. Further recommendations will depend upon the clinical course. 2. Questionable focal abnormality on his right kidney, either a source of infection, but need to do followup scanning in the future once his infection is treated to make sure he does not have any other abnormalities like renal cell carcinoma. 3. Type 2 diabetes, poorly controlled. We will continue his Levemir insulin and start him on insuli n sliding scale. We will hold his metformin given his recent contrast study. 4. Hypertension, slightly elevated. Continue Benicar and follow. 5. Dyslipidemia. 6. Deep vein thrombosis prophylaxis. Patient medium risk. We will start him on low-molecular weigh t heparin. /[id number]/MODL
[2018-02-18] MEDS: INSULIN LISPRO 100 UNIT/ML SC SCH (16:21)
--- NOTE | 2018-02-18 16:43 | PDMN ---
Medical Necessity Medical necessity: MCG: M300 UTI A-2 days : INPT for: myalgias, fever, night sweats, found to be bacteremic with UTI, likely pyelonephritis. PT with DM2 poorly controlled, HTN, dyslipidemia, > 2 MN anticipated for further monitoring and eval of bacteremia with pyelonephritis
[2018-02-18] MEDS: ACETAMINOPHEN 325 MG TAB PO PRN (17:56)
[2018-02-18] MEDS: IBUPROFEN 200 MG TAB PO PRN (20:05)
[2018-02-18] MEDS: ZOLPIDEM TARTRATE 5 MG TAB PO PRN (21:01)
[2018-02-19] MEDS: INSULIN GLARGINE 100 UNITS/ML UNIT SC SCH (09:13)
[2018-02-19] MEDS: OLMESARTAN MEDOXOMIL 20 MG TAB PO SCH (09:13)
[2018-02-19] MEDS: glyBURIDE 5 MG TAB PO SCH (09:15)
[2018-02-19] MEDS: ENOXAPARIN 40 MG/0.4 ML SYR SC SCH (09:15)
[2018-02-19] MEDS: IBUPROFEN 200 MG TAB PO PRN (09:25)
[2018-02-19] MEDS: INSULIN LISPRO 100 UNIT/ML SC SCH ×3 (10:00→18:02)
--- NOTE | 2018-02-19 10:11 | ASMTCMCOM ---
CM Note CM Note Notes: Chart reviewed for discharge planning purposes, he is admitted with bacteremia and pyelonephritis Needs TBD. Plan: TBD Date Signed: 02/19/2018 10:11 AM Electronically Signed By:Guadalupe Gomez RN
--- NOTE | 2018-02-19 13:41 | HOSPPROG ---
Hospitalist Progress Note Assessment/Plan: 47 yo with diabetes is admitted with flu-like symptoms and dysuria and found to have pyelonephritis with bacteremia # Klebsiella bacteremia, likely source is pyelo. Clinically feels much better but still having fevers * Continue current antibiotic and await sensitivities * Likely 2 week course * Will need follow up CT scan done # DM2, improved BS this admit, will continue to follow # HTN, stable Subjective: feeling better Objective: Vital Signs Temp Pulse Resp BP Pulse Ox 37.2 C 85 14 133/67 H 95 02/19/18 10:03 02/19/18 11:29 02/19/18 11:29 02/19/18 11:29 02/19/18 11:29 Laboratory Results 02/19/18 05:35 02/19/18 04:40 02/18/18 02/19/18 02/20/18 05:59 05:59 05:59 Intake Total 1540 Output Total 400 Balance 1140 - Physical Exam Constitutional: obese Cardiovascular: regular rate and rhythym Respiratory: no respiratory distress Gastrointestinal: normoactive bowel sounds, soft, non-tender abdomen Genitourinary: no bladder fullness ICD10 Worksheet Patient Problems: Problems Problem Status Onset Fever Acute Bacteremia due to Klebsiella pneumoniae Acute Renal colic on right side Acute Abdominal pain Acute UTI (urinary tract infection) Acute Acute diverticulitis Acute Cystitis Acute Bacteremia Acute Pyelonephritis Acute
[2018-02-19] MEDS: ZOLPIDEM TARTRATE 5 MG TAB PO PRN (23:57)
[2018-02-19] MEDS: ACETAMINOPHEN 325 MG TAB PO PRN (23:57)
[2018-02-20] MEDS: INSULIN LISPRO 100 UNIT/ML SC SCH ×3 (09:06→12:20)
[2018-02-20] MEDS: INSULIN GLARGINE 100 UNITS/ML UNIT SC SCH (09:06)
[2018-02-20] MEDS: ENOXAPARIN 40 MG/0.4 ML SYR SC SCH (09:06)
[2018-02-20] MEDS: OLMESARTAN MEDOXOMIL 20 MG TAB PO SCH (09:07)
[2018-02-20] MEDS: glyBURIDE 5 MG TAB PO SCH (09:07)
--- NOTE | 2018-02-20 12:17 | GDS ---
DIAGNOSES: 1. Pyelonephritis complicated by bacteremia with Klebsiella pneumonia. 2. Type 2 diabetes. 3. Hypertension. 4. Dyslipidemia. PROCEDURES DONE: Abdominal CT scan of the abdomen and pelvis showing suspicion for focal pyelonephri tis superior pole of the right kidney. Follow up CT or MRI of the kidney following therapy to ensure there is no underlying renal mass. HOSPITAL COURSE: Mr. Meyers is a 47-year-old with a history of diabetes who comes in with fevers, ch ills, night sweats, and dysuria. Blood cultures drawn in the clinic did grow positive so he was admi tted to the hospital and found to have the likely source of pyelonephritis. He was treated appropria tely with antibiotics and his symptoms improved over the course of his hospitalization. He defervesc ed and felt much improved. He has had these recurrent symptoms for a year in which he gets intermitt ent fevers, chills, and night sweats of unclear etiology. Given that he was bacteremic, I will treat him for 2 full weeks of antibiotics and follow his symptoms to make sure that he has no further inte rmittent night sweats. Additionally, he will follow up with [facility], Dr. Tyler Stallings, given his 2 episodes of bacteremia with Klebsiella. The patient is agreeable to the plan. CONDITION ON DISCHARGE: Good. He has been afebrile. Heart rate 74, blood pressure 156/76. He is 9 6% on room air. DISCHARGE MEDICATIONS: Please see discharge medication form. He will resume his home medications. Additionally, he was given Levaquin 750 daily for 11 more days to complete a 2 week course. He was w arned about the possible side effects of Levaquin. FOLLOW UP INSTRUCTIONS: He will follow up with Dr. Tyler Stallings and follow up with primary care provide r within a week. Total time since patient on day of discharge and coordination of care is 35 minutes. /[id number]/MODL
--- NOTE | 2018-02-20 12:23 | ASMTLACE ---
LACE Length of stay for Answers: 1 day current admission Acuity / Level of Answers: Yes Care: Did the patient have an inpatient admission? Comorbidities - select Answers: Diabetes (uncontrolled or all that apply controlled) # of Emergency department Answers: 1-2 visits in the last 6 months Score: 6 Date Signed: 02/20/2018 12:23 PM Electronically Signed By:Guadalupe Gomez RN
--- NOTE | 2018-02-20 12:25 | ASMTCMCOM ---
CM Note CM Note Notes: Chart reviewed. Medically cleared for discharge. No needs identified. CM available should any needs arise. Plan: Home Independently. Date Signed: 02/20/2018 12:24 PM Electronically Signed By:Guadalupe Gomez RN
[2018-02-20 13:02] VITALS: BP 149/74
== END 2018-02-20 14:17 | disposition home or self-care (01) | DRG 690 ==
LOC: F1N 14:47
PROVIDERS: ADMIT Internal Medicine; ATTEND Internal Medicine
DX: N10 Acute pyelonephritis (principal); R78.81 Bacteremia; B96.1 Klebsiella pneumoniae [K. pneumoniae] as the cause of diseases classified elsewhere; E11.9 Type 2 diabetes mellitus without complications; I10 Essential (primary) hypertension; E78.5 Hyperlipidemia, unspecified
CPT/HCPCS: 96365; J0696; J1650; J1815; Q9967

== ENCOUNTER → 2018-03-24 | Outpatient (CLI) | payer OTHER ==
[~2018-03-24] MED LIST: IOPAMIDOL (ISOVUE-300) 100 ML BTL ONE
== END ==
LOC: FIMAGING 16:04
PROVIDERS: ATTEND Internal Medicine
DX: K57.30 Diverticulosis of large intestine without perforation or abscess without bleeding (principal); K63.89 Other specified diseases of intestine; Z90.6 Acquired absence of other parts of urinary tract
CPT/HCPCS: 82565-PO; Q9967